=== PATIENT | female | born 1955 | race Caucasian/White ===

== ENCOUNTER → 2021-01-11 10:32 | Outpatient (CLI) | payer OTHER, SELFPAY ==
[2021-01-11 19:03] LABS: Add Manual Diff / Slide Review NO; Basophils Absolute Auto 100 /uL (0-100); Basophils Percent Auto 1.3 % (0-2); Eosinophils Absolute Auto 400 /uL (0-450); Eosinophils Percent Auto 5.9 % (2-4); Hematocrit 42.1 % (36-46); Hemoglobin 13.8 g/dL (12.0-16.0); Lymphocytes Absolute Auto 1300 /uL (1100-4500); Lymphocytes Percent Auto 19.2 % (25-40); Mean Corpuscular HGB Conc 32.7 % (30-36); Mean Corpuscular Hemoglobin 31.8 PG (26-34); Mean Corpuscular Volume 97.1 fL (80-100); Monocytes Absolute Auto 700 /uL (0-900); Monocytes Percent Auto 9.5 % (3-14); Neutrophils Absolute Auto 4500 /uL (1500-7000); Neutrophils Percent Auto 64.1 % (50-75); Platelet Count 306 X10^3/uL (150-400); Red Blood Cell Count 4.34 X10^6/uL (4.0-5.2); Red Cell Distribution Width 13.3 % (11.6-14.8)
[2021-01-11 19:16] LABS: Alanine Aminotransferase 34 IU/L (<35); Albumin 4.6 g/dL (3.5-5.0); Albumin Globulin Ratio 1.5 (1.0-2.8); Alkaline Phosphatase 63 U/L (38-126); Aspartate Aminotransferase 44 IU/L (14-36); Bilirubin Total 0.7 mg/dL (0.2-1.3); Blood Urea Nitrogen 13 mg/dL (7-17); Calcium 9.7 mg/dL (8.4-10.2); Carbon Dioxide 28 mmol/L (22-32); Chloride 99 mmol/L (98-107); Cholesterol 222 mg/dL (140-199); Estimated Glomerular Filt Rate > 60.0 mL/min (>60); Glucose 84 mg/dL (80-110); HDL Cholesterol 78 mg/dL (40-60); HEMOLYSIS < 15 (0-50); LDL Cholesterol Calculated 122 mg/dL (<100); Potassium 4.3 mmol/L (3.4-5.1); Sodium 136 mmol/L (137-145); Total Protein 7.6 g/dL (6.3-8.2); Triglycerides 112 mg/dL (35-150)
[2021-01-11 19:44] LABS: TSH w/ Reflex to FT4 3.11 uIU/mL (0.47-4.68)
[2021-01-11 20:01] LABS: Vitamin B12 845 pg/mL (239-931)
== END ==
PROVIDERS: PCP Physician Assistant; Visit Provider Physician Assistant
DX: D51.9 Vitamin B12 deficiency anemia, unspecified (principal); E03.9 Hypothyroidism, unspecified; R03.0 Elevated blood-pressure reading, without diagnosis of hypertension; Z13.6 Encounter for screening for cardiovascular disorders
CPT/HCPCS: 80053; 80061; 82607; 84443; 85025

== ENCOUNTER 2023-07-14 21:15 | Emergency (ER) | payer OTHER, SELFPAY ==
[2023-07-14 21:21] VITALS: BP 202/99; PULSE 79; RESP 18; TEMP 36.8; O2SAT 97
[2023-07-14] MEDS: ONDANSETRON 4 MG/2 ML INJ IV (21:44)
[2023-07-14] MEDS: MORPHINE 2 MG/ML INJ IV (21:44)
[2023-07-14 22:01] LABS: Add Manual Diff / Slide Review NO; Basophils Absolute Auto 100 /uL (0-100); Basophils Percent Auto 0.8 % (0-2); Eosinophils Absolute Auto 0 /uL (0-450); Eosinophils Percent Auto 0.1 % (2-4); Hematocrit 43.5 % (36-46); Hemoglobin 14.6 g/dL (12.0-16.0); Lymphocytes Absolute Auto 700 /uL (1100-4500); Mean Corpuscular HGB Conc 33.5 % (30-36); Mean Corpuscular Hemoglobin 31.6 PG (26-34); Mean Corpuscular Volume 94.2 fL (80-100); Monocytes Absolute Auto 400 /uL (0-900); Monocytes Percent Auto 4.2 % (3-14); Neutrophils Absolute Auto 8700 /uL (1500-7000); Neutrophils Percent Auto 87.9 % (50-75); Platelet Count 407 X10^3/uL (150-400); Red Blood Cell Count 4.62 X10^6/uL (4.0-5.2); Red Cell Distribution Width 12.7 % (11.6-14.8)
[2023-07-14 22:19] LABS: Alanine Aminotransferase 30 IU/L (<35); Albumin 4.9 g/dL (3.5-5.0); Albumin Globulin Ratio 1.6 (1.0-2.8); Alkaline Phosphatase 73 U/L (38-126); Aspartate Aminotransferase 35 IU/L (14-36); BUN Creatinine Ratio 26.2 (6-22); Bilirubin Total 0.7 mg/dL (0.2-1.3); Blood Urea Nitrogen 16 mg/dL (7-17); Calcium 9.8 mg/dL (8.4-10.2); Carbon Dioxide 27 mmol/L (22-32); Chloride 106 mmol/L (98-107); Estimated Glomerular Filt Rate > 60 mL/min (>60); Globulin 3.1 g/dL (1.7-4.1); Glucose 141 mg/dL (80-110); HEMOLYSIS < 15 (0-50); Lipase 84 U/L (23-300); Potassium 4.2 mmol/L (3.4-5.1); Sodium 138 mmol/L (137-145)
[2023-07-14 23:24] VITALS: BP 196/110
[2023-07-14 23:25] VITALS: PULSE 76; O2SAT 95
[2023-07-14 23:30] VITALS: PULSE 83; O2SAT 92
[2023-07-14 23:31] VITALS: BP 189/94; PULSE 77; O2SAT 93
--- NOTE | 2023-07-14 23:43 | ED_ITS ---
HPI - Abdominal Pain General Chief Complaint: Abdominal Pain Stated Complaint: ABD Pain Time Seen by Provider: 07/14/23 23:24 Source: patient and family Mode of arrival: Ambulatory History of Present Illness HPI narrative: 67-year-old female presents by private vehicle for lower and upper abdominal pain with nausea and single episode of emesis. Patient states that she was working at her job when she felt a rather abrupt onset of abdominal pain. She tried to take Pepcid, which did not control her symptoms. Pain persisted throughout the afternoon she decided to present for evaluation. Right now pain is focused in the right lower quadrant of her abdomen. Patient reports last colonoscopy this year, she was told everything was ?normal?. Denies history of abdominal surgeries. Related Data Previous Rx's Medication Instructions Recorded mometasone 0.1 % topical cream 1 william topical SEE INSTRUCTIONS ##30 04/21/16 levothyroxine 75 mcg tablet 75 mcg PO QAM #90 tabs 12/30/20 (Synthroid) ondansetron 4 mg disintegrating 4 mg PO Q8H PRN nausea and 07/15/23 tablet vomiting #30 tabs Allergies Allergy/AdvReac Type Severity Reaction Status Date / Time No Known Drug Allergies Allergy Verified 12/30/20 10:59 Review of Systems Review of Systems Narrative: See HPI Patient History Medical History Measles (~1965) Chicken pox (~8) Screening mammogram for high-risk patient Screening for cardiovascular condition Screening for cervical cancer Screening for osteoporosis Screening for colon cancer Diverticulosis Postmenopausal Screening for HIV (human immunodeficiency virus) Screening for diabetes mellitus Breast cancer screening Surgical History History of tonsillectomy Family History Brother Heart disease Stroke Brother Age: 73 Hypertension Brother Age: 75 Cancer Hypertension Father Hypertension Mother Cervical cancer Hypertension Stroke Sister Age: 67 Breast cancer Hypertension High cholesterol Mental health problem Social History Smoking Status: Never smoker Smoking Status: Never smoker alcohol intake frequency: a few times a week Alcohol type: wine Substance Use Type: does not use Exam Initial Vital Signs Initial Vital Signs: Vital Signs Temperature 98.2 F 07/14/23 21:21 Pulse Rate 79 07/14/23 21:21 Respiratory Rate 18 07/14/23 21:21 Blood Pressure 202/99 H 07/14/23 21:21 Pulse Oximetry 97 07/14/23 21:21 Oxygen Delivery Method Room Air 07/14/23 21:21 Const: Awake, alert, no acute distress, nontoxic appearing Cardiac: regular rate, regular rhythm RESP: unlabored, clear bilaterally, no wheezing GI: Soft, right lower quadrant tenderness to deep palpation without rebound or guarding MSK: Atraumatic, full range of motion, pulses equal Skin: Warm, Dry, intact, no rashes Neuro: AO x3, CN II-XII grossly intact, moves all extremities Course Orders Ordered: ED Orders 07/14/23 21:29 EKG-12 Lead Stat 07/14/23 21:37 Complete Blood Count AUTO DIFF Stat Comprehensive Metabolic Panel Stat Lipase Stat 07/14/23 23:43 CT abdomen pelvis w con Stat Discontinued Medications Lorazepam (Lorazepam 2 Mg/Ml Inj) 2 mg IV NOW ONE Stop: 07/15/23 02:26 Last Admin: 07/15/23 02:31 Dose: 2 mg Documented By: SHANITA Morphine Sulfate (Morphine 2 Mg/Ml Inj) 2 mg IV NOW ONE Stop: 07/14/23 21:41 Last Admin: 07/14/23 21:44 Dose: 2 mg Documented By: RAUL Morphine Sulfate (Morphine 2 Mg/Ml Inj) 2 mg IV NOW ONE Stop: 07/14/23 23:44 Last Admin: 07/15/23 00:17 Dose: 2 mg Documented By: DARBY Morphine Sulfate (Morphine 4 Mg/Ml Inj) 4 mg IV NOW ONE Stop: 07/15/23 02:26 Last Admin: 07/15/23 02:31 Dose: 4 mg Documented By: SHANITA Ondansetron HCl (Ondansetron 4 Mg Odt) 4 mg PO NOW PRN PRN Reason: Nausea And Vomiting Ondansetron HCl (Ondansetron 4 Mg/2 Ml Inj) 4 mg IV NOW PRN PRN Reason: Nausea And Vomiting Last Admin: 07/14/23 21:44 Dose: 4 mg Documented By: RAUL Vital Signs Vital signs: Vital Signs - 8 hr 07/14/23 23:24 07/14/23 23:25 07/14/23 23:30 Pulse Rate 76 83 Respiratory Rate Blood Pressure 196/110 H Pulse Oximetry 95 92 Oxygen Delivery Method 07/14/23 23:31 07/14/23 23:31 07/15/23 00:00 Pulse Rate 77 Respiratory Rate Blood Pressure 189/94 H 189/96 H Pulse Oximetry 93 Oxygen Delivery Method 07/15/23 00:00 07/15/23 00:31 07/15/23 00:31 Pulse Rate 71 77 Respiratory Rate Blood Pressure 191/98 H Pulse Oximetry 94 97 Oxygen Delivery Method 07/15/23 01:00 07/15/23 01:00 07/15/23 01:30 Pulse Rate 81 Respiratory Rate Blood Pressure 163/88 H 166/83 H Pulse Oximetry 94 Oxygen Delivery Method 07/15/23 01:30 07/15/23 02:00 07/15/23 02:00 Pulse Rate 78 79 Respiratory Rate Blood Pressure 155/83 H Pulse Oximetry 92 93 Oxygen Delivery Method 07/15/23 02:30 07/15/23 02:30 07/15/23 04:27 Pulse Rate 91 H 86 Respiratory Rate 18 16 Blood Pressure 158/77 H 131/81 Pulse Oximetry 93 94 Oxygen Delivery Method Room Air MDM - Abdominal Pain Differential Diagnosis Differential diagnosis: Likely abdominal pain, acute appendicitis and calculus of kidney Lab Data 07/14/23 21:37 07/14/23 21:37 Labs: Lab Results 07/14/23 Range/Units 21:37 WBC 10.0 (4.5-11.0) X10^3/uL RBC 4.62 (4.0-5.2) X10^6/uL Hgb 14.6 (12.0-16.0) g/dL Hct 43.5 (36-46) % MCV 94.2 (80-100) fL MCH 31.6 (26-34) PG MCHC 33.5 (30-36) % RDW 12.7 (11.6-14.8) % Plt Count 407 H (150-400) X10^3/uL Neut % (Auto) 87.9 H (50-75) % Lymph % (Auto) 7.0 L (25-40) % [place] % (Auto) 4.2 (3-14) % Eos % (Auto) 0.1 L (2-4) % Baso % (Auto) 0.8 (0-2) % Neut # (Auto) 8700 H (8884-0836) /uL Lymph # (Auto) 700 L (1719-0234) /uL [place] # (Auto) 400 (0-900) /uL Eos # (Auto) 0 (0-450) /uL Baso # (Auto) 100 (0-100) /uL Sodium 138 (137-145) mmol/L Potassium 4.2 (3.4-5.1) mmol/L Chloride 106 (98-107) mmol/L Carbon Dioxide 27 (22-32) mmol/L BUN 16 (7-17) mg/dL Creatinine 0.61 (0.52-1.04) mg/dL Estimated GFR > 60 (>60) mL/min BUN/Creatinine Ratio 26.2 H (6-22) Glucose 141 H (80-110) mg/dL Calcium 9.8 (8.4-10.2) mg/dL Total Bilirubin 0.7 (0.2-1.3) mg/dL AST 35 (14-36) IU/L ALT 30 (<35) IU/L Alkaline Phosphatase 73 (38-126) U/L Total Protein 8.0 (6.3-8.2) g/dL Albumin 4.9 (3.5-5.0) g/dL Globulin 3.1 (1.7-4.1) g/dL Albumin/Globulin Ratio 1.6 (1.0-2.8) Lipase 84 (23-300) U/L Imaging Data CT scan - abdomen/pelvis: Radiologist's Impression: PROCEDURE: CT ABDOMEN PELVIS W CON INDICATIONS: RLQ ABD PAIN TECHNIQUE: After the administration of intravenous contrast, axial sections acquired from the lung bases to the pubic symphysis. Coronal and sagittal reformats were performed. For radiation dose reduction, the following was used: automated exposure control, adjustment of mA and/or kV according to patient size. COMPARISON: None. FINDINGS: Image quality: Diagnostic. Lower Chest: Bibasilar scars. Large hiatal hernia. ABDOMEN: Liver: No solid mass. Gallbladder: No radiopaque gallstones or wall thickening. Biliary ducts: No biliary dilation. Pancreas: No ductal dilation. Spleen: Size is within normal limits. Adrenal Glands: No adrenal nodules. Kidneys and Ureters: No hydronephrosis. No solid mass. No complex renal cystic lesion which requires follow up. Stomach and Bowel: Small-bowel is filled with fluid with multiple air-fluid levels. No transitional point is identified. Appendix is normal. Normal colonic caliber, without significant wall thickening. Peritoneum: Small intraperitoneal fluid. No free air. Ventral Wall: No significant ventral hernia. Abdominal Nodes: No retroperitoneal or mesenteric adenopathy by size criteria. Vessels: Aorta and inferior vena cava are normal in size. PELVIS: Pelvic Organs: Unremarkable. Bladder: No bladder wall thickening, accounting for underdistention. Pelvic Nodes: No enlarged lymph nodes. Miscellaneous: Right inguinal hernia containing fat and fluid. Bones: No aggressive osseous abnormality. Severe facet arthropathy bilaterally at L5-S1. Mild degenerative disc disease in lower thoracic spine lumbar spine. IMPRESSION: 1. Small bowel loops are filled with fluid measuring up to 2.6 cm in diameter. There are multiple air-fluid levels. No transitional point is identified. The CT findings suggest gastroenteritis and ileus. A differential diagnosis is early or partial small bowel obstruction. 2. A small amount of free fluid is present. No free air. 3. Normal appendix. 4. A right inguinal hernia. 5. A large hiatal hernia. Dictated by: Soo Rich M.D. on 07/15/2023 at 1:47 Approved by: Soo Rich M.D. on 07/15/2023 at 1:57 MDM Narrative Medical decision making narrative: Nontoxic patient presenting with right lower quadrant abdominal pain. Abdomen is soft but she was tender in the right lower quadrant, no rebound or guarding. Blood work and CT imaging to be ordered. Laboratory work is reviewed, relatively unremarkable. There was no leukocytosis, normal electrolytes, normal kidney function. Patient's pain is controlled with small doses of medications. CT of the abdomen and pelvis reviewed, significant for several findings. There are dilated loops of bowel without transition point. Normal appendix. There is a right inguinal hernia, as well as a large hiatal hernia. Discussed findings with Radiology Dr. Rich, who stated that there is no evidence of the inguinal hernia causing the dilated loops of bowel as there is no bowel present in the hernia sac. With normal recent colonoscopy and no history of intra-abdominal surgery it was less likely that this is a developing bowel obstruction, and more likely to be gastroenteritis. Patient informed of all lab and imaging results. She states she was never been told she had a hiatal hernia but denies any symptoms of reflux, early satiety, or food intolerance. Patient was given morphine and Ativan and reclined in Trendelenburg position. With gentle pressure the patient's inguinal hernia was able to be reduced with resolution of patient's pain. Patient was referred to General surgery if she continues to experience pain. ED return precautions discussed at bedside. Patient expressed understanding of the plan and is in agreement at this time. All questions answered at the time of discharge. Discharge Plan Departure Patient Disposition: Home Clinical Impression: Gastroenteritis, Esophageal hiatal hernia, Inguinal hernia Instructions: DI for Groin Hernia, DI for Viral Gastroenteritis -- Adult Activity Restrictions/Additional Instructions: Your laboratory work today was reassuring, there were no significant abnormalities present. Your CT showed several incidental findings. You have a hiatal hernia present, as well as a right-sided inguinal hernia. We were able to reduce the inguinal hernia at bedside with medications, but be careful to not overly strain your abdominal muscles. Your appendix was normal today. Follow up with a general surgeon for your hernia. Prescriptions: New ondansetron 4 mg tablet,disintegrating 4 mg PO Q8H PRN (Reason: nausea and vomiting) Qty: 30 0RF No Action mometasone 0.1 % cream 1 william Topical SEE INSTRUCTIONS Qty: 30 1RF levothyroxine [Synthroid] 75 mcg tablet 75 mcg PO QAM Qty: 90 4RF Referrals: Loc Pittman MD [Physician] - Ginny Sherman PA-C [Primary Care Provider] - Stand Alone Forms: Patient Portal/API
[2023-07-15] VITALS (7 sets, daily range): BP systolic 131–191; BP diastolic 77–98; PULSE 71–91; RESP 16–18; O2SAT 92–97
[2023-07-15] MEDS: MORPHINE 2 MG/ML INJ IV (00:17)
[2023-07-15] MEDS: LORazepam 2 MG/ML INJ IV (02:31)
[2023-07-15] MEDS: MORPHINE 4 MG/ML INJ IV (02:31)
--- NOTE | 2023-07-15 03:09 | PC.NURSE ---
pt resting with eyes closed, will observe until pt more awake, at bedside and updated on plans
== END 2023-07-15 04:29 | disposition home or self-care (01) ==
PROVIDERS: Emergency Provider Emergency Medicine; PCP Physician Assistant
DX: K52.9 Noninfective gastroenteritis and colitis, unspecified (principal); K40.90 Unilateral inguinal hernia, without obstruction or gangrene, not specified as recurrent; K44.9 Diaphragmatic hernia without obstruction or gangrene; R11.2 Nausea with vomiting, unspecified
CPT/HCPCS: 36415; 74177; 80053; 83690; 85025; 96374; 96375; 96376; 99284; J2060; J2270; J2405; Q9967

== ENCOUNTER 2023-08-02 13:44 | Day surgery (SDC) | payer OTHER, SELFPAY ==
--- NOTE | 2023-08-01 15:28 | PM.PREOP ---
Pre-operative Note Interval Note History & Physical reviewed/Exam performed by Physician: Yes Changes to H&P: No
[2023-08-02 14:03] VITALS: BMI 29.7
[2023-08-02 14:08] VITALS: BP 143/89; PULSE 74; RESP 12; TEMP 36.3; O2SAT 96
[2023-08-02] MEDS: LACTATED RINGERS 1,000 ML 42 ML IV (14:20)
[2023-08-02] MEDS: ACETAMINOPHEN 325 MG TABLET 975 MG PO (14:24)
--- NOTE | 2023-08-02 15:53 | PM.OP.1 ---
Operative Date/Time/Diagnoses Date of procedure: 08/02/23 Time of procedure: 15:53 Pre-op diagnosis: Right inguinal hernia Post-op diagnosis: same Procedure & Clinicians Procedure: Laparoscopic repair right inguinal hernia mesh Same procedure as scheduled: Yes Indications: Symptomatic reducible right inguinal Surgeon: Loc Pittman Software Product Manager: Maximino Choi Anesthesia Type: General Operative Notes Findings: Large fat containing Right direct defect Estimated Blood Loss (mL): 20 Procedure in detail: The patient was brought to the operating room and placed supine on the table. Bilateral sequential compression devices were applied. General anesthesia was induced and they were intubated with an endotracheal tube. A iyer cath was placed in sterile fashion. They received 900g clindaymycin prior to skin incision. They were prepped and draped in sterile fashion. A time out was performed to ensure the correct patient, procedure and necessary equipment within the operating room. The skin was infiltrated with 0.25% bupivicaine. A 1 cm supra umbilical midline incision was made. The fascia was sharply incised and the abdomen entered traumatically. A 10mm balloon port was placed and pneumoperitoneum was established at 15mm Hg. Inspection of the abdomen demonstrated no evidence of injury upon entry. Two 5 mm ports were then placed under direct visualization in the right and left lower quadrant lateral to the rectus muscle. Only a right-sided inguinal hernia was present. There was a large direct defect. The peritoneum 4 cm superior to the deep inguinal ring between the medial umbilical ligament and the anterior superior iliac spine was incised. The medial preperitoneal dissection was carried out into the space of Retzius bluntly, the bladder was swept inferiorly, the pubis and Chung's ligament were identified. Next attention was turned towards the lateral aspect of the peritoneal flap. The preperitoneal fat with the testicular vessels was carefully dissected off the inferior peritoneal flap. The attachements to the direct hernia sac were divided and the direct defect was reduced. A large Bard 3D Max mesh was then placed into the abdomen and positioned such that the myopectineal orifice was completely covered with good overlap on all sides. The peritoneal flap was then repositioned back to its original position and a running V lock suture was used to close the peritoneum such that no bowel could herniate into the preperitoneal space. The area was examined for hemostasis. The 5mm trocars were removed under direct visualization and pneumoperitoneum was deflated through the umbilical trocar, The fascia at the umbilicus was closed with 0-Vicryl in figure of 8 fashion, skin closed with 4-0 Monocyl followed by Dermabond. The sponge and instrument count at the end of the case was correct. The patient emerged from anesthsia was extubated and transferred to recovery in stable condition. Complications: none Post-operative Condition: stable Disposition: same day surgery
[2023-08-02] MEDS: LACTATED RINGERS 1,000 ML 21 ML IV (16:48)
[2023-08-02] MEDS: CEFAZOLIN 2 GM/100 ML PREMIX 100 ML IV (16:49)
[2023-08-02] MEDS: BUPIVACAINE 0.25% (PF) VIAL 30 ML INJ (16:50)
--- NOTE | 2023-08-02 16:55 | SUR.OPER ---
Supine on padded OR bed, head on pillow, arms padded and tucked at sides, legs uncrossed, safety belt at thigh.
[2023-08-02 18:14] VITALS: BP 164/87; PULSE 87; RESP 20; TEMP 37; O2SAT 95
[2023-08-02 18:18] VITALS: BP 151/90; PULSE 79; RESP 19; TEMP 36.9; O2SAT 95
[2023-08-02 18:23] VITALS: BP 156/79; PULSE 80; RESP 12; TEMP 36.6; O2SAT 96
[2023-08-02 18:41] VITALS: BP 155/74; PULSE 79; RESP 18; TEMP 36.6; O2SAT 98
== END 2023-08-02 18:50 | disposition home or self-care (01) ==
PROVIDERS: PCP Family Medicine; Referring Provider Surgery; Visit Provider Surgery
PROC: (CPT 49650; principal; 2023-08-02 15:30)
DX: K40.90 Unilateral inguinal hernia, without obstruction or gangrene, not specified as recurrent (principal)
CPT/HCPCS: 49650; J0690; J1100; J1885; J2405; J3010

== ENCOUNTER 2023-08-05 10:35 | Inpatient (IN) | payer OTHER, SELFPAY ==
[2023-08-05] VITALS (23 sets, daily range): BP systolic 142–199; BP diastolic 85–109; PULSE 87–121; RESP 17–27; TEMP 36.3–36.6; O2SAT 91–98
--- NOTE | 2023-08-05 11:10 | ED.ABDPAIN ---
HPI - Abdominal Pain General Chief Complaint: Abdominal Pain Stated Complaint: post opp issues throwing up sent by dr Canales Seen by Provider: 08/05/23 11:10 Source: patient Mode of arrival: Ambulatory History of Present Illness HPI narrative: Patient is a 67-year-old female postop day number 4 from laparoscopic right inguinal hernia mesh presenting today with nausea vomiting. She would outpatient procedure done on August 01 she started having some nausea vomiting yesterday unable to keep anything down today. She would significant burning in her throat. No fever chills or cough no significant shortness of breath. She reports that she might be passing gas but it has not a lot she has not yet had a bowel movement Related Data Previous Rx's Medication Instructions Recorded levothyroxine 75 mcg tablet 75 mcg PO QAM #90 tabs 12/30/20 (Synthroid) celecoxib 200 mg capsule (Celebrex) 200 mg PO BID #20 caps 08/02/23 docusate sodium 100 mg capsule 100 mg PO BID #30 caps 08/02/23 (Colace) tramadol 50 mg tablet 50 mg PO Q6H PRN pain #15 tabs 08/02/23 Allergies Allergy/AdvReac Type Severity Reaction Status Date / Time No Known Drug Allergies Allergy Verified 08/02/23 14:02 Patient History Medical History Measles (~1965) Chicken pox (~8) Screening mammogram for high-risk patient Screening for cardiovascular condition Screening for cervical cancer Screening for osteoporosis Screening for colon cancer Diverticulosis Postmenopausal Screening for HIV (human immunodeficiency virus) Screening for diabetes mellitus Breast cancer screening Surgical History History of tonsillectomy Family History Brother Heart disease Stroke Brother Age: 73 Hypertension Brother Age: 75 Cancer Hypertension Father Hypertension Mother Cervical cancer Hypertension Stroke Ovarian cancer Diabetes mellitus Sister Age: 67 Breast cancer Hypertension High cholesterol Mental health problem Sister Breast cancer Social History marital status: household members: spouse lives independently: Yes Smoking Status: Never smoker alcohol intake: current substance use type: does not use Smoking Status: Never smoker alcohol intake frequency: a few times a week Alcohol type: wine Substance Use Type: does not use Exam Initial Vital Signs Initial Vital Signs: Vital Signs Temperature 97.8 F 08/05/23 10:38 Pulse Rate 118 H 08/05/23 10:38 Respiratory Rate 20 08/05/23 10:38 Blood Pressure 179/100 H 08/05/23 10:38 Pulse Oximetry 96 08/05/23 10:38 Oxygen Delivery Method Room Air 08/05/23 10:38 GENERAL: Alert 67-year-old female appears better after Zofran HEENT: Head atraumatic,EOMI, pupils reactive, face symmetric, moist mucous membranes CARDIOVASCULAR: Regular rate and rhythm without murmurs, rubs or gallops. RESPIRATORY: Breath sounds equal bilaterally, no wheezes rales or rhonchi. ABDOMEN: Soft, mildly distended diffuse pain EXTREMITIES: Normal range of motion, no clubbing or edema. Neurovascularly intact NEUROLOGICAL: Alert and oriented x4.Normal gait and speech. SKIN: Warm, dry, no laceration, no petechiae, no rashes or lesions. Course Orders Ordered: ED Orders 08/05/23 11:11 CT abdomen pelvis w con Stat 08/05/23 11:15 Complete Blood Count AUTO DIFF Stat Comprehensive Metabolic Panel Stat Lactate (Lactic Acid) Stat Lipase Stat Procalcitonin Stat Prothrombin Time INR Stat Hydromorphone HCl (Hydromorphone 1 Mg Inj) 0 mg IV Q5MIN PRN PRN Reason: Pain, Mild (1-3) Hydromorphone HCl (Hydromorphone 1 Mg Inj) 0 mg IV Q5MIN PRN PRN Reason: Pain, Moderate (4-6) Sodium Chloride (Normal Saline 0.9%) 1,000 mls @ 150 mls/hr IV BOLUS ONE Stop: 08/05/23 20:43 Lactated Ringer's (Lactated Ringers) 1,000 mls @ 42 mls/hr IV CONT MAURO Last Admin: 08/05/23 15:01 Dose: 42 mls/hr Documented By: CG Ondansetron HCl (Ondansetron 4 Mg Odt) 4 mg PO NOW PRN PRN Reason: Nausea And Vomiting Ondansetron HCl (Ondansetron 4 Mg/2 Ml Inj) 4 mg IV NOW PRN PRN Reason: Nausea And Vomiting Last Admin: 08/05/23 11:30 Dose: 4 mg Documented By: MORIAH Ondansetron HCl (Ondansetron 4 Mg/2 Ml Inj) 4 mg IV NOW PRN PRN Reason: Nausea And Vomiting Oxycodone HCl (Oxycodone Ir 5 Mg Tablet) 5 mg PO PACUNOW PRN PRN Reason: Mild or moderate pain Discontinued Medications Bupivacaine HCl/Epinephrine Bitart (Bupivacaine 0.5% W/ Epi (Pf) 30 Ml Vial) 30 ml INJ NOW ONE Stop: 08/05/23 16:12 Last Admin: 08/05/23 16:11 Dose: 30 ml Documented By: Sodium Chloride (Normal Saline 0.9%) 1,000 mls @ 1,000 mls/hr IV BOLUS ONE Stop: 08/05/23 11:43 Last Infusion: 08/05/23 12:45 Dose: Infused Documented By: Admin: 08/05/23 11:30 Dose: 1,000 mls/hr Documented By: MORIAH Piperacillin Sod/Tazobactam (Sod 4.5 gm/ Sodium Chloride) 100 mls @ 200 mls/hr IV NOW ONE Stop: 08/05/23 13:20 Last Admin: 08/05/23 15:58 Dose: 200 mls/hr Documented By: LAKE Pantoprazole Sodium (Pantoprazole 40 Mg Vial) 40 mg IV NOW ONE Stop: 08/05/23 11:12 Last Admin: 08/05/23 11:30 Dose: 40 mg Documented By: MORIAH Vital Signs Vital signs: Vital Signs - 8 hr 08/05/23 10:38 08/05/23 10:52 08/05/23 10:53 Temperature 97.8 F Pulse Rate 118 H 103 H 96 H Respiratory Rate 20 19 Blood Pressure 179/100 H Pulse Oximetry 96 96 96 Oxygen Delivery Method Room Air 08/05/23 10:53 08/05/23 11:00 08/05/23 11:00 Temperature Pulse Rate 99 H Respiratory Rate 21 Blood Pressure 183/108 H 167/107 H Pulse Oximetry 93 Oxygen Delivery Method Room Air 08/05/23 11:30 08/05/23 11:30 08/05/23 12:00 Temperature Pulse Rate 104 H 101 H Respiratory Rate 23 Blood Pressure 170/101 H Pulse Oximetry 94 Oxygen Delivery Method 08/05/23 12:01 08/05/23 12:01 08/05/23 13:00 Temperature Pulse Rate 94 H 98 H Respiratory Rate 19 23 Blood Pressure 199/96 H Pulse Oximetry 98 95 Oxygen Delivery Method Room Air Room Air 08/05/23 13:00 08/05/23 13:30 08/05/23 13:30 Temperature Pulse Rate 96 H Respiratory Rate 20 Blood Pressure 181/107 H 183/109 H Pulse Oximetry 96 Oxygen Delivery Method 08/05/23 14:00 08/05/23 14:01 Temperature Pulse Rate Respiratory Rate Blood Pressure Pulse Oximetry 95 96 Oxygen Delivery Method MDM - Abdominal Pain Lab Data 08/05/23 11:15 08/05/23 11:15 Labs: Lab Results 08/05/23 Range/Units 11:15 WBC 12.6 H (4.5-11.0) X10^3/uL RBC 4.87 (4.0-5.2) X10^6/uL Hgb 15.4 (12.0-16.0) g/dL Hct 45.9 (36-46) % MCV 94.2 (80-100) fL MCH 31.6 (26-34) PG MCHC 33.6 (30-36) % RDW 13.1 (11.6-14.8) % Plt Count 363 (150-400) X10^3/uL Neut % (Auto) 86.6 H (50-75) % Lymph % (Auto) 6.4 L (25-40) % [place] % (Auto) 6.8 (3-14) % Eos % (Auto) 0.0 L (2-4) % Baso % (Auto) 0.2 (0-2) % Neut # (Auto) 77421 H (1925-4342) /uL Lymph # (Auto) 800 L (9319-7633) /uL [place] # (Auto) 900 (0-900) /uL Eos # (Auto) 0 (0-450) /uL Baso # (Auto) 0 (0-100) /uL PT 11.0 (9.4-12.5) SECONDS INR 1.0 (0.9-1.3) Sodium 138 (137-145) mmol/L Potassium 4.0 (3.4-5.1) mmol/L Chloride 98 (98-107) mmol/L Carbon Dioxide 27 (22-32) mmol/L BUN 17 (7-17) mg/dL Creatinine 0.69 (0.52-1.04) mg/dL Estimated GFR > 60 (>60) mL/min BUN/Creatinine Ratio 24.6 H (6-22) Glucose 118 H (80-110) mg/dL Lactate 1.4 (0.7-2.1) mmol/L Calcium 10.4 H (8.4-10.2) mg/dL Total Bilirubin 1.3 (0.2-1.3) mg/dL AST 51 H (14-36) IU/L ALT 39 H (<35) IU/L Alkaline Phosphatase 68 (38-126) U/L Total Protein 8.2 (6.3-8.2) g/dL Albumin 4.9 (3.5-5.0) g/dL Globulin 3.3 (1.7-4.1) g/dL Albumin/Globulin Ratio 1.5 (1.0-2.8) Lipase 96 (23-300) U/L Procalcitonin 0.08 (<0.5) ng/mL Imaging Data CT scan - abdomen/pelvis: Radiologist's Impression: PROCEDURE: CT ABDOMEN PELVIS W CON INDICATIONS: post op vomiting TECHNIQUE: After the administration of intravenous contrast, axial sections acquired from the lung bases to the pubic symphysis. Coronal and sagittal reformats were performed. For radiation dose reduction, the following was used: automated exposure control, adjustment of mA and/or kV according to patient size. COMPARISON: [facility], CT, CT ABDOMEN PELVIS W CON, 07/15/2023, 0:10. FINDINGS: Image quality: Diagnostic. Lower Chest: There is a large hiatal hernia. ABDOMEN: Liver: No solid mass. Gallbladder: No radiopaque gallstones or wall thickening. Biliary ducts: No biliary dilation. Pancreas: No ductal dilation. Spleen: Size is within normal limits. Adrenal Glands: No adrenal nodules. Kidneys and Ureters: No hydronephrosis. No solid mass. No complex renal cystic lesion which requires follow up. Stomach and Bowel: The stomach is distended with fluid. The proximal small bowel is dilated to 3.8 cm. The distal small bowel is decompressed. The site of the small-bowel obstruction appears to be within the right lower quadrant. The colon is relatively decompressed. A normal appendix is noted. Peritoneum: No abnormal intraperitoneal fluid. No free air. Ventral Wall: No significant ventral hernia. Postoperative gas and inflammatory change can be seen involving the anterior abdominal wall, primarily on the left side. Abdominal Nodes: No retroperitoneal or mesenteric adenopathy by size criteria. Vessels: Aorta and inferior vena cava are normal in size. PELVIS: Pelvic Organs: The uterus appears normal for age. No adnexal masses are seen. Bladder: No bladder wall thickening, accounting for underdistention. Pelvic Nodes: No enlarged lymph nodes. Miscellaneous: A right inguinal hernia is seen, which contains fluid and gas. Bones: No aggressive osseous abnormality. Age-appropriate bony degenerative changes are seen. IMPRESSION: Small-bowel obstruction, with a site of obstruction believed to be within the right lower quadrant. There is a large hiatal hernia. The stomach is distended. There is a right inguinal hernia seen, which contains fluid and gas. Prior postoperative change of the left anterior abdominal wall can be seen, with gas and inflammatory change. Dictated by: Quinn Fink M.D. on 08/05/2023 at 11:30 MDM Narrative Medical decision making narrative: Patient 67-year-old female who has postop a right inguinal hernia repair presenting today with increased abdominal pain distention and vomiting. Really unable to keep anything down. On exam she is diffusely tender minimal distention Blood work has been reviewed WBC 12.6, hemoglobin 15.4, hematocrit 45.9, platelets 363. Sodium 138, potassium 4.0 chloride 98, carbon dioxide 27, BUN 17, creatinine 0.69, glucose 118, calcium 10.4, bilirubin 1.3 AST 51 ALT 39 lipase 96 lactate 1.4 Imaging: CT scan does show small bowel obstruction with site of obstruction believed to be an right lower quadrant right inguinal hernia seen which contains fluid and gas. 12:52 DR. De Los Santos in aware of patient. In ED to see and evaluate. Patient will go to OR Patient has been given IV fluids Zofran and Protonix. She is overall feeling a lot better does not want any more pain medication. Patient is admitted to Dr. Wiggins Discharge Plan Departure Patient Disposition: Admitted As Inpatient Clinical Impression: Small intestine obstruction Admit Date/Time: 08/05/23 14:19 Admit Provider: Nathan Wiggins
[2023-08-05 11:22] LABS: Add Manual Diff / Slide Review NO; Basophils Absolute Auto 0 /uL (0-100); Basophils Percent Auto 0.2 % (0-2); Eosinophils Absolute Auto 0 /uL (0-450); Hematocrit 45.9 % (36-46); Hemoglobin 15.4 g/dL (12.0-16.0); Lymphocytes Absolute Auto 800 /uL (1100-4500); Lymphocytes Percent Auto 6.4 % (25-40); Mean Corpuscular HGB Conc 33.6 % (30-36); Mean Corpuscular Hemoglobin 31.6 PG (26-34); Mean Corpuscular Volume 94.2 fL (80-100); Monocytes Absolute Auto 900 /uL (0-900); Monocytes Percent Auto 6.8 % (3-14); Neutrophils Absolute Auto 10900 /uL (1500-7000); Neutrophils Percent Auto 86.6 % (50-75); Platelet Count 363 X10^3/uL (150-400); Red Blood Cell Count 4.87 X10^6/uL (4.0-5.2); Red Cell Distribution Width 13.1 % (11.6-14.8); White Blood Cell Count 12.6 X10^3/uL (4.5-11.0)
[2023-08-05] MEDS: PANTOPRAZOLE 40 MG VIAL IV (11:30)
[2023-08-05] MEDS: SODIUM CHLORIDE 0.9% 1,000 ML 1000 ML IV (11:30)
[2023-08-05] MEDS: ONDANSETRON 4 MG/2 ML INJ IV ×2 (11:30→21:32)
[2023-08-05 11:36] LABS: Alanine Aminotransferase 39 IU/L (<35); Albumin 4.9 g/dL (3.5-5.0); Albumin Globulin Ratio 1.5 (1.0-2.8); Alkaline Phosphatase 68 U/L (38-126); Aspartate Aminotransferase 51 IU/L (14-36); BUN Creatinine Ratio 24.6 (6-22); Bilirubin Total 1.3 mg/dL (0.2-1.3); Blood Urea Nitrogen 17 mg/dL (7-17); Calcium 10.4 mg/dL (8.4-10.2); Carbon Dioxide 27 mmol/L (22-32); Chloride 98 mmol/L (98-107); Estimated Glomerular Filt Rate > 60 mL/min (>60); Globulin 3.3 g/dL (1.7-4.1); Glucose 118 mg/dL (80-110); HEMOLYSIS < 15 (0-50); Lipase 96 U/L (23-300); Sodium 138 mmol/L (137-145); Total Protein 8.2 g/dL (6.3-8.2)
[2023-08-05 11:37] LABS: Lactate (Lactic Acid) 1.4 mmol/L (0.7-2.1)
[2023-08-05 11:53] LABS: Procalcitonin 0.08 ng/mL (<0.5)
--- NOTE | 2023-08-05 13:16 | PM.HP.1 ---
History of Present Illness History of Present Illness Date Patient Seen: 08/05/23 Time Patient Seen: 13:16 Chief complaint: post opp issues throwing up sent by dr Weiss: Libertad is a 67-year-old woman who had a routine laparoscopic right inguinal hernia repair on Monday. She started to develop nausea and vomiting on and it got significantly worse yesterday. She came in today and a CT scan shows a small-bowel obstruction with a likely transition point then involves a loop of small bowel in the right lower quadrant. It does not appear to me to be within the original hernia but it may be between the peritoneal flap and the mesh. [facility] Medical History Measles (~1964) Chicken pox (~1957) Screening mammogram for high-risk patient Screening for cardiovascular condition Screening for cervical cancer Screening for osteoporosis Screening for colon cancer Diverticulosis Postmenopausal Screening for HIV (human immunodeficiency virus) Screening for diabetes mellitus Breast cancer screening Surgical History History of tonsillectomy Family History Brother Heart disease Stroke Brother Age: 73 Hypertension Brother Age: 75 Cancer Hypertension Father Hypertension Mother Cervical cancer Hypertension Stroke Ovarian cancer Diabetes mellitus Sister Age: 67 Breast cancer Hypertension High cholesterol Mental health problem Sister Breast cancer Social History marital status: household members: spouse lives independently: Yes Smoking Status: Never smoker alcohol intake: current substance use type: does not use Meds Home Medications and Allergies Home Medications Medication Instructions Recorded Confirmed Type levothyroxine 75 mcg tablet 75 mcg PO QAM #90 tabs 12/30/20 08/02/23 Rx (Synthroid) celecoxib 200 mg capsule (Celebrex) 200 mg PO BID #20 caps 08/02/23 Rx docusate sodium 100 mg capsule 100 mg PO BID #30 caps 08/02/23 Rx (Colace) tramadol 50 mg tablet 50 mg PO Q6H PRN pain #15 tabs 08/02/23 Rx Allergies Allergy/AdvReac Type Severity Reaction Status Date / Time No Known Drug Allergies Allergy Verified 08/02/23 14:02 Exam Vital Signs (past 8 hours): - 08/05/23 10:38 08/05/23 10:52 08/05/23 10:53 Temperature 97.8 F Pulse Rate 118 H 103 H 96 H Respiratory Rate 20 19 Blood Pressure 179/100 H Pulse Oximetry 96 96 96 Oxygen Delivery Method Room Air 08/05/23 10:53 08/05/23 11:00 08/05/23 11:00 Temperature Pulse Rate 99 H Respiratory Rate 21 Blood Pressure 183/108 H 167/107 H Pulse Oximetry 93 Oxygen Delivery Method Room Air 08/05/23 11:30 08/05/23 11:30 08/05/23 12:00 Temperature Pulse Rate 104 H 101 H Respiratory Rate 23 Blood Pressure 170/101 H Pulse Oximetry 94 Oxygen Delivery Method 08/05/23 12:01 08/05/23 12:01 08/05/23 13:00 Temperature Pulse Rate 94 H 98 H Respiratory Rate 19 23 Blood Pressure 199/96 H Pulse Oximetry 98 95 Oxygen Delivery Method Room Air Room Air 08/05/23 13:00 Temperature Pulse Rate Respiratory Rate Blood Pressure 181/107 H Pulse Oximetry Oxygen Delivery Method Oxygen Delivery Method Room Air Narrative Exam Narrative: Abdomen is soft and diffusely tender Fresh laparoscopic surgical wounds No peritonitis Objective Labs 08/05/23 11:15 08/05/23 11:15 Labs: Laboratory Results - last 24 hr 08/05/23 11:15 WBC 12.6 H RBC 4.87 Hgb 15.4 Hct 45.9 MCV 94.2 MCH 31.6 MCHC 33.6 RDW 13.1 Plt Count 363 Neut % (Auto) 86.6 H Lymph % (Auto) 6.4 L [place] % (Auto) 6.8 Eos % (Auto) 0.0 L Baso % (Auto) 0.2 Neut # (Auto) 47600 H Lymph # (Auto) 800 L [place] # (Auto) 900 Eos # (Auto) 0 Baso # (Auto) 0 PT 11.0 INR 1.0 Sodium 138 Potassium 4.0 Chloride 98 Carbon Dioxide 27 BUN 17 Creatinine 0.69 Estimated GFR > 60 BUN/Creatinine Ratio 24.6 H Glucose 118 H Lactate 1.4 Calcium 10.4 H Total Bilirubin 1.3 AST 51 H ALT 39 H Alkaline Phosphatase 68 Total Protein 8.2 Albumin 4.9 Globulin 3.3 Albumin/Globulin Ratio 1.5 Lipase 96 Procalcitonin 0.08 Assessment & Plan Assessment and plan (1) Small bowel obstruction: Status: Acute Plan I recommend we proceed with a diagnostic laparoscopy and any indicated procedure. If there is a loop of small bowel herniated through a peritoneal defect I would reduce the loop of bowel and inspect it. As long as it remains viable I would simply close the peritoneal defect with a running 3-0 barbed suture. If there is questionable viability of the loop of small bowel I would perform a small-bowel resection and remove the mesh. This would likely require a larger incision. She understands and would like to proceed. We should place an NG-tube to decompress her stomach prior to surgery.
--- NOTE | 2023-08-05 14:29 | PC.NURSE ---
18 fr NGT to left nare, 2200 cc of dark billious material out. Pt states she feels improved. + placement per gi contents and auscultation. Now to low wall intermit suction.
[2023-08-05] MEDS: LACTATED RINGERS 1,000 ML 42 ML IV (15:01)
--- NOTE | 2023-08-05 15:02 | SUR.OPER ---
Supine on padded OR bed, head on pillow, arms secured on padded arm boards at <90 degrees abduction, legs uncrossed, safety belt at thigh, tape over blanket over lower legs.
[2023-08-05] MEDS: PIPERACILLIN/TAZO 4.5 GM in SODIUM CHLORIDE 0.9% 100 ML IV (15:58)
[2023-08-05] MEDS: BUPIVACAINE 0.5% W/ EPI (PF) 30 ML VIAL INJ (16:11)
--- NOTE | 2023-08-05 16:59 | PM.OP.1 ---
Operative Date/Time/Diagnoses Date of procedure: 08/05/23 Time of procedure: 16:59 Pre-op diagnosis: Small bowel obstruction Post-op diagnosis: same Procedure & Clinicians Procedure: Diagnostic laparoscopy Reduction of internal hernia from right inguinal peritoneal defect Closure of peritoneal defect Same procedure as scheduled: Yes Surgeon: Nathan Wiggins Anesthesia Type: General Operative Notes Procedure in detail: The patient is a 67-year-old woman who had undergone a laparoscopic right inguinal hernia repair with mesh 3 days prior. She presented with small bowel obstructive symptoms and a CT showed a transition point associated with the right lower quadrant. She was consented for a diagnostic laparoscopy. The patient was given Zosyn. The patient was brought to the operating room, placed on the table in the supine position and general endotracheal anesthesia was induced. The laparoscopic incisions were reopened. The fascial stitch was removed and a finger was inserted into the peritoneum. The Handy port was placed at the supraumbilical incision and 5 mm ports were placed a in the left and right midabdomen through the prior incisions. The patient was positioned in Trendelenburg and the camera was inserted. There was a loop of small bowel incarcerated through a peritoneal defect in the right lower abdomen. The bowel was easily reduced and was viable and well perfused. The mesh appeared to be in its appropriate position over the hernia. Some of the barbed suture was cut and removed. One fragment of the barbed suture was somewhat embedded in the serosa of a loop of small bowel that had been reduced from the hernia and was carefully removed from the serosa. There was no evidence of injury bowel. Next, a new 2-0 barbed suture was brought in to the abdomen and the defect was sewn closed with no gaps. There was small amount of bleeding from the peritoneum which was stopped by pulling the suture tight and applying a little bit of pressure with a Ray-Juana. Hemostasis was then observed. We removed a small piece of necrotic fat from the abdomen. No other abnormalities were noted within the abdomen. We then removed the suture and the Ray-Juana. The 5 mm ports were removed under direct vision. The abdomen was desufflated. The supraumbilical port was removed. Additional local was injected into the fascia and the fascia was closed with 3 interrupted 0 Vicryl sutures. The skin was closed with 4-0 Monocryl. Steri-Strips and Band-Aids were applied. EBL: 10 mL Post-operative Condition: stable Disposition: PACU
[2023-08-05] MEDS: ACETAMINOPHEN IV 1,000 MG/100 ML VIAL 400 MG IV (17:12)
--- NOTE | 2023-08-05 18:54 | PC.NURSE ---
Pt arrived via PACU in hospital bed. Pt is alert and oriented and conversant.Surgical site intact, VSS, IV patent, Bowel tones absent presently. NG patent to low intermittent suction. Family attentive at bedside.
[2023-08-05] MEDS: SODIUM CHLORIDE 0.9% 1,000 ML 150 ML IV (20:21)
[2023-08-05] MEDS: HYDROMORPHONE 0.5 MG INJ IV (21:32)
[2023-08-06] VITALS: BP 140/89; PULSE 91; RESP 17; TEMP 36.6; O2SAT 95
[2023-08-06 03:20] VITALS: BP 150/86; PULSE 83; RESP 16; TEMP 36.4; O2SAT 97
[2023-08-06 06:02] LABS: Add Manual Diff / Slide Review NO; Basophils Absolute Auto 0 /uL (0-100); Basophils Percent Auto 0.3 % (0-2); Eosinophils Absolute Auto 0 /uL (0-450); Eosinophils Percent Auto 0.4 % (2-4); Hematocrit 41.1 % (36-46); Hemoglobin 13.7 g/dL (12.0-16.0); Lymphocytes Absolute Auto 1000 /uL (1100-4500); Lymphocytes Percent Auto 12.2 % (25-40); Mean Corpuscular HGB Conc 33.4 % (30-36); Mean Corpuscular Hemoglobin 31.8 PG (26-34); Mean Corpuscular Volume 95.3 fL (80-100); Monocytes Absolute Auto 1000 /uL (0-900); Monocytes Percent Auto 11.7 % (3-14); Neutrophils Absolute Auto 6300 /uL (1500-7000); Neutrophils Percent Auto 75.4 % (50-75); Platelet Count 303 X10^3/uL (150-400); Red Blood Cell Count 4.31 X10^6/uL (4.0-5.2); Red Cell Distribution Width 12.9 % (11.6-14.8); White Blood Cell Count 8.3 X10^3/uL (4.5-11.0)
[2023-08-06 07:00] VITALS: BP 152/87; PULSE 90; RESP 18; TEMP 36.3; O2SAT 97
--- NOTE | 2023-08-06 09:04 | PM.PN.1 ---
Subjective Subjective Date Patient Seen: 08/06/23 Time Patient Seen: 09:05 Interval history: Has passed gas. Feels well. Exam Vital Signs (past 8 hours): - 08/06/23 03:20 08/06/23 07:00 Temperature 97.6 F 97.3 F L Pulse Rate 83 90 Respiratory Rate 16 18 Blood Pressure 150/86 H 152/87 H Pulse Oximetry 97 97 Oxygen Flow Rate 2 0 Oxygen Delivery Method Room Air Oxygen Flow Rate 0 Const General: No acute distress Resp Effort & Inspection: normal respiratory effort GI Palpation: soft Objective Labs 08/06/23 05:05 08/05/23 11:15 Labs: Laboratory Results - last 24 hr 08/05/23 08/06/23 11:15 05:05 WBC 12.6 H 8.3 RBC 4.87 4.31 Hgb 15.4 13.7 Hct 45.9 41.1 MCV 94.2 95.3 MCH 31.6 31.8 MCHC 33.6 33.4 RDW 13.1 12.9 Plt Count 363 303 Neut % (Auto) 86.6 H 75.4 H Lymph % (Auto) 6.4 L 12.2 L [place] % (Auto) 6.8 11.7 Eos % (Auto) 0.0 L 0.4 L Baso % (Auto) 0.2 0.3 Neut # (Auto) 13535 H 6300 Lymph # (Auto) 800 L 1000 L [place] # (Auto) 900 1000 H Eos # (Auto) 0 0 Baso # (Auto) 0 0 PT 11.0 INR 1.0 Sodium 138 Potassium 4.0 Chloride 98 Carbon Dioxide 27 BUN 17 Creatinine 0.69 Estimated GFR > 60 BUN/Creatinine Ratio 24.6 H Glucose 118 H Lactate 1.4 Calcium 10.4 H Total Bilirubin 1.3 AST 51 H ALT 39 H Alkaline Phosphatase 68 Total Protein 8.2 Albumin 4.9 Globulin 3.3 Albumin/Globulin Ratio 1.5 Lipase 96 Procalcitonin 0.08 PFSH Medical History Measles (~1964) Chicken pox (~8) Screening mammogram for high-risk patient Screening for cardiovascular condition Screening for cervical cancer Screening for osteoporosis Screening for colon cancer Diverticulosis Postmenopausal Screening for HIV (human immunodeficiency virus) Screening for diabetes mellitus Breast cancer screening Surgical History History of tonsillectomy Family History Brother Heart disease Stroke Brother Age: 73 Hypertension Brother Age: 75 Cancer Hypertension Father Hypertension Mother Cervical cancer Hypertension Stroke Ovarian cancer Diabetes mellitus Sister Age: 67 Breast cancer Hypertension High cholesterol Mental health problem Sister Breast cancer Social History marital status: household members: spouse lives independently: Yes Smoking Status: Never smoker alcohol intake: current substance use type: does not use Assessment & Plan Assessment and plan (1) Small intestine obstruction: Status: Acute Plan Discontinue NG tube and start clear liquid diet and advance as tolerates Quality VTE Deep Vein Thrombosis/Pulmonary Embolism Present on Admission: No
--- NOTE | 2023-08-06 11:03 | CM.DANOTE ---
Patient is a 67 yo female who was a READMIT on 08/05/23 for SBO. Pt has UMR for insurance and her PCP is Edgar Loya. EMR was reviewed. Per Surgeon, pt was recently here for outpt hernia repair and discharged home with no needs and returned a couple days later with new SBO. Pt had NGT and then taken to OR for lap procedure. Pt making progress and NGT discontinued today and to start clears to see how she can tolerate to determine if her diet can be advanced. Per RN, pt independent and ambulating in room and no concerns noted. SW met briefly bedside with pt and explained role and she confirms she lives on [facility] with her and both are active and independent at baseline. Pt works and drives and does not use DME to ambulate. Pt does not anticipate any needs and is anxious to quickly make progress so that she can discharge back home with her spouse. Pt's preference is home by tomorrow if stable and confirms spouse can transport. Plan: SW to follow closely to see if pt can tolerate advancing diet towards plan of discharge home with spouse when medically stable and any further identified discharge planning needs. MARYELLEN Dempsey Discharge Planning/Care Management CM Discharge Assessment Start: 08/06/23 10:58 Freq: Status: Active Protocol: Document 08/06/23 10:58 BF (Rec: 08/06/23 11:02 [email or web address]) Discharge Planning Assessment Assigned Sr. Strategic Sourcing Manager MARYELLEN Baker DPOA/Assigned Designee Name spouse [place] Contact Information [phone] Advance Directives? Yes Advance Directives on File No History Provided By Patient,Significant Other, Medical Record Has Patient been admitted in last 30 Yes days? Comment Recent outpt surgery for hernia repair, now readmit for SBO Prior Living Arrangements House Household Members spouse Type of transporation used prior to Drives own vehicle admit Independent with ADL's Yes Is patient alert and oriented? Yes Caregiver for Another No Barriers to Discharge No Discharge Plan Home Transportation Arrangement spouse Referrals Initiated None needed Whiteboard Updated in Patient Room with Yes name and ext. # of Sr. Strategic Sourcing Manager Review Status In Process Please Provide Date Initial DC 08/06/23 Assessment Was Performed Next Review Type Continued Stay Review
--- NOTE | 2023-08-06 11:04 | PC.NURSE ---
Dr. Wiggins here this am to see pt-NG dc'd taking clears withour nausea or vomiting. here at 1109
== END 2023-08-06 13:30 | disposition home or self-care (01) | DRG 358 ==
LOC: ED 14:05 → AC 14:20
PROVIDERS: Admitting Provider Surgery; Emergency Provider Emergency Medicine; PCP Family Medicine; Referring Provider Emergency Medicine; Visit Provider Surgery
PROC: 0DQV4ZZ Repair Mesentery, Percutaneous Endoscopic Approach (ICD-10-PCS; CPT 49320; principal; 2023-08-05 16:00)
DX: K40.31 Unilateral inguinal hernia, with obstruction, without gangrene, recurrent (principal)
CPT/HCPCS: 36415; 74177; 80053; 83605; 83690; 84145; 85025; 85610; 96374; 96375; 99284; C9113; J0136; J0330; J0690; J1100; J1170; J1885; J2405; J2543; J2704; J3010; Q9967